=== PATIENT | female | born 1995 | race Hispanic/Latino ===

== ENCOUNTER 2017-04-14 12:48 | Outpatient (CLI) | payer OTHER ==
--- NOTE | 2017-04-14 14:30 | ULT ---
OBSTETRIC SONOGRAM: HISTORY: Second-trimester . evaluation. FINDINGS: Multiple transabdominal sonographic views of the gravid uterus show a single intrauterine gestation i n variable presentation. The cervix is closed and 5.1 cm. Amniotic fluid is within normal limits. Grade 0 placenta is posterior. spine and kidneys are intact as visualized. No gross intracran ial abnormalities are apparent. Three-vessel cord shows a normal insertion. Four-chamber heart show s motion at 150 b.p.m. Measurements are as follows: Biparietal diameter 22 weeks, 5 days Head circumference 22 weeks, 4 days Abdominal circumference 22 weeks, 6 days Femur length 21 weeks, 5 days Estimated date of delivery based on today's sonogram is 08/15/17. Hadlock percentile=27%. IMPRESSION: Single viable intrauterine gestation with estimated gestational age based on today's sonogram of 22 w eeks 3 days. POS: [facility]ADE
== END 2017-04-14 12:49 | disposition home or self-care (01) ==
LOC: ULT 12:48
PROVIDERS: ATTEND Nurse Practitioner
DX: Z34.02 Encounter for supervision of normal first pregnancy, second trimester (principal); Z3A.22 22 weeks gestation of pregnancy
CPT/HCPCS: 76805

== ENCOUNTER 2021-01-18 14:07 | Outpatient (CLI) | payer OTHER | END 2021-01-18 14:08 | disposition home or self-care (01) | LOC: BICULT 14:07 | PROVIDERS: ATTEND Family Medicine | DX: O09.893 Supervision of other high risk pregnancies, third trimester (principal); Z3A.28 28 weeks gestation of pregnancy | CPT/HCPCS: 76805 ==